=== PATIENT | male | born 1940 | race Caucasian/White ===

== ENCOUNTER 2016-10-06 13:28 | Inpatient (IN) | payer MEDICARE ==
[~2016-10-06] VITALS: Ht 182.9 cm; Wt 104.5 kg
--- NOTE | 2016-10-06 13:45 | NUR ---
Arrived from [facility] Pt arrived via EMS from [facility]. Pt denies chest pain at this time. Pt accompanied by family. Pt on 1000 units Heparin upon arrival. Per report VSS. Care continues.
[2016-10-06] MEDS ORDERED: 0.9% Sodium Chloride 1,000 ML IV SCH (15:25)
[2016-10-06] MEDS ORDERED: Senna-Docusate 8.6-50 mg Tablet PO PRN (15:25)
[2016-10-06] MEDS ORDERED: Heparin 25K Unit/500mL 0.45 NS 25,000 UNIT in IV Premix 1 EACH IV SCH (15:25)
[2016-10-06] MEDS ORDERED: Alum-Mag Hydrox-Simeth 30 mL Suspension PO PRN (15:25)
[2016-10-06] MEDS ORDERED: Heparin 5,000 Unit/mL Inj IVPUSH PRN (15:25)
[2016-10-06] MEDS ORDERED: Polyethylene Glycol (PEG) 17 Gm Powder PO PRN (15:25)
[2016-10-06] MEDS ORDERED: Ondansetron 2 mg/mL 2 mL Inj IVPUSH PRN (15:25)
[2016-10-06 15:42] VITALS: BP 171/98; PULSE 69; RESP 23; O2SAT 98
[2016-10-06 15:43] VITALS: PULSE 79
[2016-10-06 15:45] LABS: APPEARANCE,URINE CLEAR (CLEAR,HAZY); COLOR,URINE YELLOW (YELLOW); OCCULT BLOOD,URINE TRACE (NEGATIVE); PH,URINE 6.5 (5.0-8.0); UROBILINOGEN,URINE NORMAL (NORMAL)
[2016-10-06] MEDS: Sodium Chloride LOK Flush 10 mL Syringe IVFLUSH SCH ×2 (16:35→22:22)
[2016-10-06] MEDS ORDERED: FLUT16SP NASAL (16:53)
[2016-10-06] MEDS ORDERED: LISI-567 PO (16:53)
[2016-10-06] MEDS ORDERED: Nitroglycerin 2% 1 Gm Ointment TOPICAL SCH (17:05)
[2016-10-06 17:18] LABS: Magnesium 2.3 mg/dL (1.6-2.6); TROPONIN T 1.68 ug/L (0.0-0.011)
--- NOTE | 2016-10-06 17:21 | NUR ---
CHEST PAIN During admission assessment, pt reports chest pain-MD present and orders Nitrostat to be administered. Nitro given at 1705 with slight relief and second dose administered at 1710 with reported relief. VSS, BP within normal range. EKG in progress. Pt's primary RNElisha is aware.
[2016-10-06] MEDS ORDERED: Nitroglycerin 2% 1 Gm Ointment TOPICAL ONE (18:00)
--- NOTE | 2016-10-06 18:57 | PCM.HPMED ---
Subjective Date of Service October 06, 2016 Primary Provider: Admitting Physician: Gilmer Brito MD Primary Care Physician: Duran Rosas MD Attending Physician: Gilmer Brito MD Admit Status: Direct Admit Chief Complaint: "chest pressure" History of Present Illness: Mr. Dejon Osborn is a 76 year old man with history of hypertension and is a former smoker who presented to the hospital as a transfer from [facility] for chest pain that started Tuesday. He and his are moving so he has been doing a lot of work around the house including yard work on Tuesday. He states that Tuesday morning he started to have a headache at the top of his head and an earache. Tuesday, he was sitting at the [facility] 's office when he noticed that he had a sore throat. He then started having a dull chest pressure at his left pectoralis area radiating into his left neck and left shoulder. He states that it was a 3/10 and constant. It gets worse with movement and doing things. He went home from the [facility]'s office and ate pizza for dinner. After eating dinner, he was nauseous and felt like the pizza was stuck in his esophagus so he vomited once. It was non-bloody vomit. He also had 4 loose bowel movements yesterday, which is abnormal for him. The chest pressure continued and he was not able to sleep secondary to pain. He tried taking Aleve twice without relief of his pain. When the pain continued this morning, he decided to seek medical attention at the hospital. He thought he was just having heartburn. He had associated dyspnea. He continues to have chest pain now. It fluctuates from a 3/10 up to a 5/10. He continues to have nausea, a sore throat, and mild cough. He does not have fever, chills, rash, changes in visions, nasal congestion, trouble talking or swallowing, abdominal pain, dysuria, leg edema, hematemesis, hematochezia, melena, or focal weakness. At [facility], patient was started on a heparin drip he was given aspirin 324 mg once, atorvastatin 40 mg once, clopidogrel 300 mg once, and metoprolol tartrate 5 mg once. EKG did not show concerning ST segment changes. Review of Systems: A comprehensive review of systems was conducted with the patient and found to be negative except as above in the History of Present Illness. 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 External ears without defect. Pupils equal, round, and reactive to light and accommodation. Anicteric sclerae, moist conjunctivae, and no lid lag. Oropharynx free of erythema and cobble stoning with moist mucosa. Neck: Supple with full range of motion. No jugular venous distension. No bruits. No lymphadenopathy or thyromegaly. Cardiovascular: Regular rate and rhythm with no murmurs, rubs, or gallops appreciated Pulmonary: Clear to auscultation bilaterally with no crackles, wheezes, or rhonchi. Normal respiratory effort with no use of accessory muscles. Abdomen: Bowel tones present. Soft, nontender, nondistended. No hepatosplenomegaly or masses appreciated. Extremities: Trace pitting edema bilateral lower legs up to the ankles. No clubbing, cyanosis, or lymphadenopathy appreciated. Skin: Diffuse actinic keratoses. Lipomas underneath right arm along the triceps and on left upper quadrant of abdomen. Normal temperature, turgor, and texture; no rash, ulcers, or subcutaneous nodules appreciated. Neurological: Cranial nerves grossly intact. Normal muscle strength, tone, and bulk. Reflexes, coordination, and sensory function within normal limits. No known gait impairment. Psychiatric: Normal mood and affect. Alert and oriented to person, place, and time. Lab and Diagnostics Labs Blood work from [facility] on 10/06/2016 at 10:45 AM: WBC 13.4, RBC 5.3, hemoglobin 16.1, hematocrit 46.2, MCV 87.1, platelet count 183, neutrophils 11.4, lymphocytes 1.1, monocytes 0.8, eosinophils 0.0 Sodium 137, potassium 4, chloride 102, carbon dioxide 26, BUN 17, creatinine 1, estimated GFR 72, glucose 156, calcium 9.7, magnesium 2.2, total bilirubin 1.4, AST 118, ALT 33, alkaline phosphatase 67, troponin I 12.86, BNP 169, albumin 4.4 , lipase 33 X-Rays, CTs and MRIs CXR does not show any acute cardiopulmonary diseases. 12-lead ECG Sinus rhythm Non specific ST changes in V2, V3 Assessment & Plan Mr. Dejon Osborn is a 76 year old man with history of hypertension and former smoker who presented to the hospital as a transfer from [facility] for chest pain that started Tuesday Probable non-ST elevation myocardial infarction, acute, present on admission. Active. - EKGs do not show significant ST elevation, troponin elevated at [facility] and here - Pt does not have any known coronary artery disease - CK-MB elevated - Patient was ready given a loading dose of aspirin, Plavix and atorvastatin at [facility] - He was also given 1 dose of 5 mg metoprolol and started on a heparin drip - Nitroglycerin and morphine as needed for chest pain - EKGs as needed for chest pain - 1 inch of nitroglycerin paste for tonight - Continue to trend troponin level - Continue aspirin 81 mg daily, atorvastatin 40 mg once daily, metoprolol tartrate 12.5 mg twice a day, and lisinopril 20 mg once daily - Continue heparin drip - Echocardiogram ordered - Cardiology consulted and following. Their recommendations appreciated. Patient will likely proceed with a left heart catheterization with coronary angiogram tomorrow. - Nothing by mouth after midnight Abnormal liver function tests, acute, present on admission. Active. - Elevated total bilirubin and AST - Pt does not have abdominal pain and does not have abdominal tenderness on exam - Patient reports history of gallstones and reports only drinking 1 martini every other week and occasionally 1 additional beer - No evidence of acute heart failure on exam - Continue to monitor with morning labs and consider further imaging and/or labs if persists - Echocardiogram as above Essential hypertension, chronic. - Continue lisinopril 20 mg once daily - Metoprolol 12.5 mg twice a day as above - Continue to monitor Obstructive sleep apnea, chronic. - Patient is unable to bring his CPAP to the hospital -.CPAP for overnight Gastroesophageal reflux disease, chronic. - Pepcid twice a day Zofran as needed for nausea and vomiting Acetaminophen as needed for pain or fever Maalox as needed for heartburn MiraLAX and senna as needed for constipation High-risk medications: Heparin drip Patient Status: Patient is admitted under inpatient status with expected length of stay greater than 2 midnights due to severity of presenting symptoms, risk of adverse event, and complexity of treatment plan. CODE STATUS: Full code will need to obtain advanced directive from [facility] VTE Prophylaxis: Other (heparin drip) Resuscitation Status: CPR: Attempt Resuscitation Time spent 45 min Attending Statement Patient seen and examined with house staff. Agree with all attached documentation. Martha Dobbs DO October 06, 2016 16:39 Gilmer Brito MD October 07, 2016 07:58
--- NOTE | 2016-10-06 19:28 | NUR ---
Heparin Started pt on Heparin at 1634 per Cardiac Heparin Protocol 1000 units/hr. Two nurse check with Delmi Mendez. NS at 80 mL/hr per orders. Care continues.
[2016-10-06 19:32] VITALS: BP 140/77; PULSE 70; RESP 18; O2SAT 97
[2016-10-06 23:54] VITALS: BP 125/66; PULSE 72; RESP 18; O2SAT 96
[2016-10-07] VITALS (17 sets, daily range): BP systolic 103–146; BP diastolic 59–83; PULSE 67–91; RESP 10–21; O2SAT 92–98
--- NOTE | 2016-10-07 03:12 | NUR ---
Headache Pt c/o headache 09/22. paged, new orders received for Tylenol. Administered. Tylenol effective, pt sleeping.
[2016-10-07 03:24] LABS: BASOPHILS % (AUTO) 0.3 % (0-3); EOSINOPHILS % (AUTO) 0.8 % (0-5); MONOCYTES % (AUTO) 12.7 % (4-12); Mean Corpuscular Hemoglobin 30.6 pg (27.0-35.0); Mean Corpuscular Volume 84.8 fL (81-100); NEUTROPHILS % (AUTO) 69.8 % (40-74); Platelet Count 176 bil/L (150-400)
[2016-10-07 04:50] LABS: TROPONIN T 2.23 ug/L (0.0-0.011)
[2016-10-07] MEDS: Sodium Chloride LOK Flush 10 mL Syringe IVFLUSH SCH ×2 (09:08→15:53)
[2016-10-07] MEDS: Fluticasone 0.05% 15 Spray/2 Gm 16 Gm Nasal Spray NASAL SCH (09:08)
--- NOTE | 2016-10-07 10:24 | PCM.CHPCAR ---
Consult Subjective Date of service October 07, 2016 Date of admit October 06, 2016 at 15:24 Provider Requesting Consult Requesting Provider: Martha Dobbs DO Primary Care Physician Primary Care Physician: Duran Rosas MD Chief Complaint Chest pressure History of Present Illness 76yoM hx HTN, JAEL, GERD, and past history of smoking who presented with 3 days of dull constant 3/10 chest pain and pressure in his left chest radiating to his left neck and left shoulder. It was described as worsened with activity, although it was present constantly. Associated symptoms included nausea, vomiting, sore throat, and mild cough. He denies shortness of breath, orthopnea , paroxysmal nocturnal dyspnea, dizziness, fainting, palpitations, or edema. He was admitted to [facility], started on aspirin, Plavix, atorvastatin, and metoprolol tartrate. EKG did not show concerning ST changes but troponins were elevated, and he was transferred to [facility]. He was started on a heparin drip on admission. Troponin and CK-MB were noted to be significantly elevated. Today, he reports his chest pain and pressure are resolved, along with his nausea and vomiting. He reports he feels well at this time. He states he has no other complaints. PROBLEM LIST: # NSTEMI # Hypertension # Obstructive sleep apnea # Former Smoker: quit in the 1970s Review of Systems Review of Systems Comprehensive review of systems conducted and was negative except for the pertinent positives listed above. PMH Past Medical History Hypertension for 3 years Lipomas Cholelithiasis Obstructive sleep apnea Gastroesophageal reflux disease Past Surgical History Lumbar spine surgery (L3-L4 laminectomy) Lipoma removals Scheduled Fluticasone Propionate (Fluticasone Propionate Nasal) 16 Gm [place].susp 1 SPRAY NASAL DAILY (Reported) Lisinopril (Lisinopril) 20 Mg Tablet 20 MG PO DAILY (Reported) Current Inpatient Medications Current Medications Sodium Chloride 10 ml 10 ml DONELL IVFLUSH Last administered on 10/07/16 09:08; Admin Dose 10 ML; Start 10/06/16 at 16:30 Sodium Chloride 1,000 ml @ 80 mls/hr [id number] IV Last administered on 10/06/16 16:30; Admin Dose 80 MLS/HR; Start 10/06/16 at 15:25; Stop 10/06/16 at 17:16; Status DC Aspirin 81 mg DAILY PO Last administered on 10/07/16 09:08; Admin Dose 81 MG; Start 10/07/16 at 08:30 Atorvastatin Calcium 40 mg HS PO Last administered on 10/06/16 19:36; Admin Dose 40 MG; Start 10/06/16 at 21:00 Al Hydrox/Mg Hydrox/Simethicone 30 ml Q6 PRN PO; Start 10/06/16 at 15:25 Ondansetron HCl 4-8 mg prn nausea Q4 PRN IVPUSH; Start 10/06/16 at 15:25 Senna 1 tablet BID PRN PO; Start 10/06/16 at 15:25 Polyethylene Glycol 17 gm DAILY PRN PO; Start 10/06/16 at 15:25 Acetaminophen 325 mg Q6 PRN PO; Start 10/06/16 at 15:25; Stop 10/06/16 at 23:14 ; Status DC Nitroglycerin 0.4 mg Q5MIN PRN SL Last administered on 10/06/16 17:25; Admin Dose 0.4 MG; Start 10/06/16 at 15:25 Morphine Sulfate 1-5 mg prn pain not relie... Q5M PRN IVPUSH; Start 10/06/16 at 15:25 Heparin Sodium (Porcine) Per Protocol for a... PRN PRN IVPUSH Last administered on 10/06/16 22:25; Admin Dose 5,000 UNIT; Start 10/06/16 at 15:25 Lisinopril 20 mg HS PO; Start 10/06/16 at 21:00; Stop 10/06/16 at 21:00; Status DC Metoprolol Tartrate 12.5 mg BID PO Last administered on 10/07/16 09:08; Admin Dose 12.5 MG; Start 10/06/16 at 20:30 Lisinopril 20 mg HS PO; Start 10/07/16 at 21:00 Nitroglycerin 1 inch NOW TOPICAL; Start 10/06/16 at 17:05; Stop 10/06/16 at 17: 57; Status DC Fluticasone Propionate 1 spray DAILY NASAL Last administered on 10/07/16 09:08 ; Admin Dose 1 SPRAY; Start 10/07/16 at 08:30 Famotidine 20 mg Q12 PO Last administered on 10/07/16 09:08; Admin Dose 20 MG; Start 10/06/16 at 20:30 Acetaminophen 650 mg Q6H PRN PO Last administered on 10/06/16 23:28; Admin Dose 650 MG; Start 10/06/16 at 23:14 Allergies: Coded Allergies: No Known Allergies (Unverified , 10/06/16) Family History Family History Mother from cervical caner at 61 years old Father from myocardial infarction at 89 years old He has four children in good health Social History 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 Hx Alcohol Use: Yes (one martini once every other week and occasional 1 additional beer)Alcoholic Drinks Per Day: see noteHx Substance Use: No Smoking Status: Former Smoker (18 pack year history) Living Arrangement: with Family Exam Vital Signs Vital Sign - Last Date Time Temp Pulse Resp B/P Pulse Ox O2 Delivery O2 Flow Rate FiO2 10/07/16 07:52 36.5 70 18 117/70 98 Room Air Intake and Output 10/06/16 10/06/16 10/07/16 Cumulative From/Thru 15:00 23:00 07:00 10/06/16 15:42 - 10/07/16 06:48 Intake Total 464 ml 464 ml Output Total 1175 ml 1175 ml Balance -711 ml -711 ml Intake Oral 200 ml 200 ml IV Total 264 ml 264 ml Output Urine Total 1175 ml 1175 ml Objective General appearance: No apparent distress, well-nourished, pleasant, cooperative HEET: Normocephalic, atraumatic, no scleral icterus, mucous membranes moist Neck: Supple, no JVD, no carotid bruit Cardiovascular: RRR, normal S1 and normal S2, no murmurs/ rubs/gallops, PMI nondisplaced, no peripheral edema Respiratory: Good aeration, CTAB Abdomen: Soft, nontender, nondistended, + bowel sounds Neuro: Alert, no facial droop, tongue midline, able to walk without any difficulty Psych: Appropriate affect Skin: No rashes on face, neck, and lower extremities Lab and Diagnostics Labs Troponin: (10/06/16 - 15:55): 1.68 (10/06/16 - 22:53): 2.0 (10/07/16 - 03:10): 2.23 (10/07/16 - 08:25): 2.02 Result Diagram: 10/07/16 0930 10/07/16 0310 12-lead ECG EKG (10/06/16): 1st degree AV block, ST changes in V2-V3. Biphasic T waves in V2- 3. EKG (10/07/16): 1st degree AV block. ST changes remain in V3, but normalized in V2. PVCs present. Additional Diagnostics: Echocardiogram (10/07/16): 1) Moderate concentric left ventricular hypertrophy with normal size and mildly reduced systolic function (EF 45-50%). 2) The mid to distal anterior wall and the mid to apical anterolateral wall is hypokinetic. 3) Normal right ventricular size and function. 4) No significant valvular disease. 5) No prior Echo available for comparison. Findings consistent with ischemic cardiomyopathy. Assessment & Plan Assessment 76yoM hx HTN, JAEL, GERD, and past history of smoking who presented with 3 days of dull constant 3/10 chest pain and pressure in his left chest radiating to his left neck and left shoulder. Admitted for NSTEMI. # NSTEMI: Pt presented with typical chest pain, with several cardiac risk factors including HTN, JAEL, and history of smoking. His ECG is concerning for Wellen's sign that could mean ostial/proximal LAD obstructive disease. Troponin positive consistent with NSTEMI. Echo shows anterior and anterolateral wall abnormality, consistent with probable LAD/diag (or LAD/LCx) disease. His DUDLEY Score is 3 (age >65, elevated cardiac markers, and >2 episodes of angina in 24 hours), conferring a 13% risk of all cause mortality in 14 days, which indicates that he is a candidate for cardiac catheterization. At this time, we will schedule him for a cath today. - Continue Aspirin 81 mg daily - Pt was given loading dose of clopidogrel 300 mg yesterday. Will start clopidogrel 75 mg daily - Continue lisinopril 20 mg daily - Continue metoprolol tartrate 12.5 mg BID - Continue heparin gtt - Morphine and nitroglycerin PRN - Will proceed with cardiac catheterization with possible PCI today. Informed consent obtained after discussing risks vs benefits. # Hypertension: Well controlled. BP 117/70. Pt likely has prior history of significant HTN given concentric LV hypertrophy on echocardiogram. - Continue lisinopril 20 mg daily # Obstructive sleep apnea - Continue CPAP VTE Prophylaxis: Other (heparin drip) Resuscitation Status: CPR: Attempt Resuscitation Attending Statement I saw, examined, and evaluated the patient with Dr. Pratik Schreiber on 2016 and agree with the note as above along with my edits. Pratik Schreiber October 07, 2016 10:24 Sallie Suarez MD October 07, 2016 11:33
--- NOTE | 2016-10-07 11:36 | DRSVH ---
[facility] [address] [address] Echocardiogram Report Name: NHI ADORNO TStudy Date : 10/07/2016 Height: 72 in Hospital Exam Location: [facility] Weight: 231 lb Gender: Male BSA: 2.3 m2 : 1940 Age: 76 yrs BP: 124/77 mmHg Reason For Study: Chest Pressure Ordering Physician: Performed By: Marilee Mcdaniels [facility] Interpretation Summary 1) Moderate concentric left ventricular hypertrophy with normal size and mildly reduced systolic function (EF 45-50%). 2) The mid to distal anterior wall and the mid to apical anterolateral wall is hypokinetic. 3) Normal right ventricular size and function. 4) No significant valvular disease. 5) No prior Echo available for comparison. Findings consistent with ischemic cardiomyopathy. Procedure: A two-dimensional transthoracic echocardiogram with color flow and Doppler was performed. The study quality was technically adequate. There is no prior echocardiogram noted for this patient. A contrast injection of Definity was performed to improve assessment of LV function. The patient was in normal sinus rhythm during the exam. The patient had occasional PVCs during the exam. Left Ventricle: The left ventricle is normal in size. Left ventricular wall thickness is moderately increased. The ejection fraction is estimated to be 45-50%. Left ventricular systolic function is mildly reduced. The mid to distal anterior wall and the mid to apical anterolateral wall is hypokinetic. The E/A ratio is reversed with an elevated E/E', suggesting impaired early relaxation of the left ventricle with possible increased filling pressures. Right Ventricle: The right ventricle is mildly dilated. The right ventricular systolic function is normal. Atria: Both atria are normal in size. There is no Doppler evidence for an interatrial shunt. Mitral Valve: The mitral valve leaflets are slightly calcified. There is trace mitral regurgitation. Aortic Valve: The aortic valve opens well. There is no aortic valve stenosis. No aortic regurgitation is present. Tricuspid Valve: The tricuspid valve is normal in structure and function. There is a trace or physiologic amount of tricuspid regurgitation. Right ventricular systolic pressure is estimated to be 20 mmHg plus the clinically estimated CVP which cannot be estimated on this exam. Pulmonic Valve: The pulmonic valve is not well seen, but is grossly normal. There is a trace or physiologic amount of pulmonic regurgitation. Great Vessels: The aortic root is normal size. The ascending aorta is at the upper limits of normal in size. The aortic arch is at the upper limits of normal in size. The IVC has a measurement of 23 mm. Pericardium/ Pleura There is no pericardial effusion. MMode/2D Measurements & Calculations LVIDd: 4.2 cm LA dimension: 3.6 cm RA long axis LVOT diam: 2.4 cm LVIDs: 3.0 cm AoV Opening FS: 30.1 % LA A2 area: 17.8 cm RA area EPSS: 1.1 cm LA A4 area: 19.2 cm Ao root diam IVSd: 1.5 cm LA length (vol) : 16.7 cm LVPWd: 1.4 cm RA vol asc Aorta Diam LA vol: 54.2 ml : 49.9 ml LA vol index RA Ao Arch Diam (Prox : 22.0 mm2 Trans): 3.4 cm IVC diam: 2.3 cm LV gleason. diameter/BSA LV sys. diameter/BSA RVD1 (basal) TAPSE: 2.7 cm (cm/m^2): 1.9 (cm/m^2): 1.3 Doppler Measurements & Calculations Ao V2 max MV E max augusto MV E/A: 0.51 TR max augusto : 96.1 cm/sec : 53.5 cm/sec Med Peak E' Augusto : 225.8 cm/sec Ao max PG MV A max augusto TR max PG : 3.7 mmHg : 105.3 cm/sec E/E' med: 13.0 : 20.4 mmHg Ao mean PG MV P1/2t: 90.0 msec Lat Peak E' Augusto PA V2 max : 63.5 cm/sec LVOT Max Augusto E/E' lat: 13.6 PA mean PG : 82.1 cm/sec E/e' average PA Accel Time WIL(I,D): 4.2 cm : 0.16 sec sev ratio MV dec time MV P1/2t max augusto Ao V2 mean LV V1 max PG : 0.31 sec : 64.8 cm/sec MVA(P1/2t): 2.4 cm2 Ao V2 VTI: 18.3 cm LV V1 VTI WIL(V,D): 3.9 cm2 : 17.1 cm PA V2 mean WIL indexed to BSA : 47.6 cm/sec (cm^2/m^2): 1.9 Reading Physician:11:35 AM
--- NOTE | 2016-10-07 13:18 | PCM.PNMED ---
Subjective Date of Service October 07, 2016 Subjective Mr. Dejon Osborn is a 76 year old man with history of hypertension and is a former smoker who presented to the hospital as a transfer from [facility] for chest pain that started Tuesday afternoon. This morning, he does not have chest pain, dyspnea, nausea, or swelling in his legs. He has a 3/10 frontal headache that was relieved by Tylenol earlier this morning. He does not have abdominal pain. He last had a glass of wine Tuesday night with dinner. Exam Vital Signs Vital Sign - Last Date Time Temp Pulse Resp B/P Pulse Ox O2 Delivery O2 Flow Rate FiO2 10/07/16 05:01 75 10/07/16 04:32 36.5 18 124/77 95 Room Air Intake and Output 10/06/16 10/06/16 10/07/16 Cumulative From/Thru 15:00 23:00 07:00 10/06/16 15:42 - 10/07/16 06:48 Intake Total 464 ml 464 ml Output Total 1175 ml 1175 ml Balance -711 ml -711 ml Intake Oral 200 ml 200 ml IV Total 264 ml 264 ml Output Urine Total 1175 ml 1175 ml Exam General: No acute distress, well-developed, well-nourished, appropriately interactive HEENT: Normocephalic, atraumatic. External ears without defect. Pupils equal, round, and reactive to light and accommodation. Anicteric sclerae, moist conjunctivae, and no lid lag. Oropharynx free of erythema and cobble stoning with moist mucosa. Neck: Supple with full range of motion. No jugular venous distension. Cardiovascular: Regular rate and rhythm with no murmurs, rubs, or gallops appreciated Pulmonary: Clear to auscultation bilaterally with no crackles, wheezes, or rhonchi. Normal respiratory effort with no use of accessory muscles. Abdomen: Bowel tones present. Soft, nontender, nondistended. No hepatosplenomegaly or masses appreciated. Extremities: Trace pitting edema bilateral lower legs up to the ankles. No clubbing, cyanosis, or lymphadenopathy appreciated. Skin: Diffuse actinic keratoses. Lipomas underneath right arm along the triceps and on left upper quadrant of abdomen. Neurological: Cranial nerves grossly intact. Normal muscle strength, tone, and bulk. No known gait impairment. Psychiatric: Normal mood and affect. Alert and oriented to person, place, and time. IVs and Medications Medications Reviewed: Medications were reviewed in detail Lab and Diagnostics Result Diagram: 10/07/1630910/07/16309 X-Rays, CTs and MRIs CXR does not show any acute cardiopulmonary diseases. 12-lead ECG Sinus rhythm Non specific ST changes in V2, V3 Cardiac Echo Impressions Echocardiogram Report Interpretation Summary 1) Moderate concentric left ventricular hypertrophy with normal size and mildly reduced systolic function (EF 45-50%). 2) The mid to distal anterior wall and the mid to apical anterolateral wall is hypokinetic. 3) Normal right ventricular size and function. 4) No significant valvular disease. 5) No prior Echo available for comparison. Findings consistent with ischemic cardiomyopathy. Reading Physician:11: 35 AM Assessment & Plan Mr. Dejon Osborn is a 76 year old man with history of hypertension and former smoker who presented to the hospital as a transfer from [facility] for chest pain that started Tuesday Probable non-ST elevation myocardial infarction, acute, present on admission. Active. - EKGs did not show significant ST elevation, troponin elevated at [facility] and here - Pt does not have any known coronary artery disease - CK-MB also elevated - Echocardiogram shows EF 45-50% and mid to distal anterior wall and the mid to apical anterolateral wall is hypokinetic. - Patient was already given a loading dose of aspirin, Plavix and atorvastatin at [facility] - He was also given 1 dose of 5 mg metoprolol and started on a heparin drip - Nitroglycerin and morphine as needed for chest pain - EKGs as needed for chest pain - 1 inch of nitroglycerin paste yesterday - Continue aspirin 81 mg daily, atorvastatin 40 mg once daily, metoprolol tartrate 12.5 mg twice a day, and lisinopril 20 mg once daily - Continue heparin drip until left heart catheterization with coronary angiogram later today - Cardiology consulted and following. Their recommendations appreciated. Patient will have a left heart catheterization with coronary angiogram today - Nothing by mouth until procedure Abnormal liver function tests, acute, present on admission. Active. - Elevated total bilirubin and AST - Pt does not have abdominal pain and does not have abdominal tenderness on exam - Patient reports history of gallstones and reports only drinking 1 martini every other week and occasionally 1 additional beer. His last drink was the 2 days ago. - No evidence of acute heart failure on exam - Continue to monitor with morning labs and consider further imaging and/or labs if persists - Echocardiogram as above Essential hypertension, chronic. - Continue lisinopril 20 mg once daily - Metoprolol 12.5 mg twice a day as above - Continue to monitor Obstructive sleep apnea, chronic. - Patient is unable to bring his CPAP to the hospital -.CPAP for overnight Gastroesophageal reflux disease, chronic. - Pepcid twice a day Zofran as needed for nausea and vomiting Acetaminophen as needed for pain or fever Maalox as needed for heartburn MiraLAX and senna as needed for constipation High-risk medications: Heparin drip CODE STATUS: Full code will need to obtain advanced directive from [facility] VTE Prophylaxis: Other (heparin drip) Resuscitation Status: CPR: Attempt Resuscitation Attending Statement Patient seen and examined with house staff. Agree with all attached documentation. Martha Dobbs DO October 07, 2016 07:37 Gilmer Brito MD October 07, 2016 16:26
[2016-10-07] MEDS ORDERED: Heparin 1,000 Units/500 mL NS Premix IV ONE (14:29)
[2016-10-07] MEDS ORDERED: Heparin 10,000 Unit/1,000 mL NS Premix IV ONE (14:30)
[2016-10-07] MEDS ORDERED: Heparin 1,000 Unit/mL 10 mL Inj ONE ×2 (14:30→16:01)
[2016-10-07] MEDS ORDERED: Verapamil 2.5 mg/mL 2 mL Inj ONE (14:30)
[2016-10-07] MEDS ORDERED: Nitroglycerin 50,000 mcg/250 mL D5W Premix IV ONE (14:30)
--- NOTE | 2016-10-07 14:30 | NUR ---
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 Pt denies any CP, SOB or dizziness. A&O, RASS score 0. PIV started by IV therapy due to needing access to right radial for cathead operator. Report passed to Elisha Ramsey RN
[2016-10-07] MEDS ORDERED: fentaNYL-PF 50 mCg/mL 2 mL Inj ONE ×2 (15:09→15:34)
[2016-10-07] MEDS ORDERED: Heparin 5,000 Units/500 mL NS Premix IV ONE ×2 (15:59→16:24)
[2016-10-07] MEDS ORDERED: Atropine 1 mg/10 mL (Code) Syringe ONE (16:18)
[2016-10-07] MEDS ORDERED: Phenylephrine/NS-PF 100 mCg/mL 5 mL Syringe IVPUSH ONE (16:18)
[2016-10-07] MEDS ORDERED: 0.9% Sodium Chloride 100 ML ONE (16:33)
[2016-10-07] MEDS ORDERED: Adenosine Inj 40 ML IV ONE (16:33)
--- NOTE | 2016-10-07 16:46 | PCM.CVCATH ---
Cardiac Cath Report Date of Service October 07, 2016 Primary Indication NSTEMI, anterior and anterolateral wall motion abnormality on Echo Procedure coronary angiography, left heart cath Vascular Access Right radial artery using 6 Fr slender sheath, closure with TR band. Diagnostic Catheters Left main: Armbrust 4.5, 6 Fr RCA: Armbrust 4.5, 6 Fr Procedure Details Coronary angiography details: The patient was brought to the cardiac catheterization lab in the fasting state. Patient was laid supine on the cardiac catheterization table and the right forearm was prepped and draped in the usual sterile fashion. One percent Xylocaine was infiltrated over the right radial artery. Vascular access was then achieved under ultrasound guidance. Guide wire was used to advance the catheter through the sheath and up into aortic sinuses. After coronary angiography was completed, guide wire was advanced through the catheter ahead of the tip of the catheter and the guide wire along with the catheter were pulled together out of the sheath. Medications/Fluoro Time Medications/contrast administered and contrast totals: see PCI report Findings 1) Coronary angiography: Right dominance a. Left main is angiographically normal b. LAD is normal caliber vessel with 70-80% tubular stenosis from the ostium to the proximal LAD. The second diagonal artery is small caliber and appears to be occluded proximally. c. LCx is normal caliber vessel with mild luminal irregularities. d. RCA is a normal caliber vessel with 60-70% stenosis in the mid vessel. 2) Left Heart catheterization: a. LVEDP is normal at 15 mmHg. b. No significant transaortic gradient on catheter pull-back. Complications There were no periprocedural complications identified. Summary 1) Obstructive disease in the proximal LAD and occlusion of the small caliber second diagonal artery. 2) Borderline obstructive disease of the mid-RCA. Recommendations 1) Refer to PCI for proximal LAD revascularization. Sallie Suarez MD October 07, 2016 16:46
--- NOTE | 2016-10-07 18:25 | CS94 ---
[address] [address] DIAGNOSTIC CARDIAC CATHETERIZATION PATIENT: NHI ADORNO : 1940 MR#: [id number] ADMIT: 10/06/2016 JOB ID: [id number] PROCEDURE NOTE -- CARDIAC CATHETERIZATION LABORATORY: SERVICE DATE: September CONSTRUCTION CONSULTANT: Mauricio Taylor MD PROCEDURE: Percutaneous coronary intervention (PCI): a. Fractional flow reserve of proximal LAD (FFR; diagnostic) CLINICAL DETAILS: This 76-year-old man had no prior known heart disease until he was admitted yesterday after presenting with three days of chest discomfort. He was felt to have acute coronary syndrome with non-ST elevation myocardial infarction. Troponin kishan to 12. ECG showed lateral ST elevation (L1; and aVL); and anterior ST coving; and later Q-waves V1 through V3. Echocardiogram shows anterior wall motion defect with mild to moderate global LV dysfunction with ejection fraction 40% to 45%. He was stable without further chest discomfort. PROCEDURAL DETAILS: Urgent cardiac catheterization and diagnostic coronary angiogram by right radial approach was accomplished immediately preceding this procedure. The diagnostic images were reviewed and coronary intervention with FFR of the apparent culprit intermediate diffuse lesion of early mid LAD was requested. The patient was on the catheterization table with 6-Syrian right radial access in place. FFR of mid LAD: The patient had received aspirin, statin; and Plavix including a loading dose of 300 mg p.o. 24 hours Previously; and had received intravenous heparin treatment. Procedural anticoagulation was accomplished with additional bolus IV heparin to achieve therapeutic ACT. Aliquots of NTG per RRA were used. For the procedure, the left coronary artery was intubated with a 6-Syrian FL-3.5 guide catheter. Initially, a 6-Syrian Voda 4.0; and a Voda-3.5; and a Voda 3.0 could not intubate the left coronary artery. The index lesion is an intermediate (60% to 70% angiographic) diffuse lesion in the early mid LAD. The stump of an apparent occluded diagonal vessel is seen as well. The lesion was crossed without difficulty with a Thompson Pressure Wire and placed distally in the LAD after usual calibration and equalization. FFR was done with adenosine IV infusion. Lowest FFR was 0.81. IFR was 0.89. Completion angiograms show no change in the left coronary artery and LAD. Procedure without difficulty. Patient tolerated procedure well. No complication. A prior side-arm sheath angiogram had showed adequate access in the right femoral artery for a closure device. Arterial hemostasis was obtained without difficulty using a Perclose suture. The patient was transferred chest-pain free and in stable condition from the Catheterization Laboratory to the [facility] unit for ongoing care. I discussed the findings, impression, and management with the patient; as well as with his and daughter; and with Cardiology. FINDINGS: FFR of early mid LAD intermediate lesion -- FFR 0.81. Therapeutic intervention deferred. RECOMMENDATION: 1. OMT-- recommend guideline directed medical therapy for acute coronary syndrome including the ECASA; Plavix for one year; and high-intensity statin with Lipitor 80 mg p.o. q.h.s. if well tolerated; and beta-sabine; and ARUY inhibitor. 2. Close ongoing Cardiology followup for the residual intermediate LAD lesion; and for his intermediate mid right coronary artery lesion.
--- NOTE | 2016-10-07 19:24 | NUR ---
Report from [facility] Report taken from [facility] Worley at approximately 1825, pt to arrive at approximately 1930 back to [facility]. Report given to robby BARR.
--- NOTE | 2016-10-07 19:54 | NUR ---
[facility] POST HEART CATH/TRANSFER PT WAS RECEIVED FROM [facility] AT 1710. RIGHT WRIST SITE WITH TR BAND HAS REMAINED NON TENDER, NO BLEEDING OR HEMATOMA NOTED. PT HAS BEEN COMPLIANT KEEPING RIGHT WRIST STRAIGHT AND NOT BENDING IT. HE TOLERATED MEAL WELL AND HAS USED URINAL TO VOID. IV NS INFUSING PER ORDERS. TR BAND WAS GRADUALLY DEFLATED AFTER 2 HOURS ON AND REMOVED. NO BLEEDING OR HEMATOMA NOTED. COVERED WITH OPSITE. REPORT CALLED TO WILFREDO Pedro RN EARLIER. PT WAS TRANSPORTED BACK TO ROOM 2002 AT 1950. BEDSIDE HANDOFF DONE WITH EARLINE Tian RN.
--- NOTE | 2016-10-07 20:00 | NUR ---
Transfer from [facility] to [facility] Room 2002 Pt was picked up from [facility] and transferred in the pt's bed back to Room 2002. Pt's VSS and pt is able to get OOB. Pt's radial artery site is clean, dry, and intact with a bio-occlusive dressing that has minimal sanguineous drainage. Pt's pulses are strong in both arms and pt has sensation as well bilaterally with good capillary refill.
[2016-10-08] VITALS (9 sets, daily range): BP systolic 121–158; BP diastolic 70–93; PULSE 69–91; RESP 16–20; O2SAT 94–97
[2016-10-08] MEDS: Sodium Chloride LOK Flush 10 mL Syringe IVFLUSH SCH ×3 (00:30→17:27)
[2016-10-08 03:09] LABS: Mean Corpuscular Volume 85.9 fL (81-100)
--- NOTE | 2016-10-08 05:14 | NUR ---
Respiratory/Catheter Insertion Site Pt was on a continuous pulse ox during sleep since pt uses a CPAP at home and didn't bring it with him to the hospital. Pt has been educated on JAEL. Pt SpO2 remained >92% on RA throughout the night. Pt's radial artery catheter insertion site remains the same and pt still has the bio-occlusive dressing on the site with minimal sanguineous drainage. There is paperwork in the pt's paper chart with a blue sticky note on it that needs to be sent home with the pt. The paperwork is information on care of the catheter insertion site.
[2016-10-08] MEDS: Fluticasone 0.05% 15 Spray/2 Gm 16 Gm Nasal Spray NASAL SCH (08:30)
--- NOTE | 2016-10-08 08:59 | PCM.PNCARD ---
Subjective Date of service October 08, 2016 Chief Complaint Chest pressure History of Present Illness 76yoM hx HTN, JAEL, GERD, and past history of smoking who presented with 3 days of dull constant 3/10 chest pain and pressure in his left chest radiating to his left neck and left shoulder. It was described as worsened with activity, although it was present constantly. Associated symptoms included nausea, vomiting, sore throat, and mild cough. He denies shortness of breath, orthopnea , paroxysmal nocturnal dyspnea, dizziness, fainting, palpitations, or edema. He was admitted to [facility], started on aspirin, Plavix, atorvastatin, and metoprolol tartrate. EKG did not show concerning ST changes but troponins were elevated, and he was transferred to [facility]. He was started on a heparin drip on admission. Troponin and CK-MB were noted to be significantly elevated. Subjective: He reports that he tolerated the cath well yesterday. Today, he denies chest pain, shortness of breath, orthopnea, paroxysmal nocturnal dyspnea, edema, palpitations, syncope. PROBLEM LIST: # NSTEMI # Hypertension # Obstructive sleep apnea Exam Vital Signs Vital Sign - Last Date Time Temp Pulse Resp B/P Pulse Ox O2 Delivery O2 Flow Rate FiO2 10/08/16 05:16 81 10/08/16 03:42 37.2 16 144/83 95 Room Air Intake and Output 10/07/16 10/07/16 10/08/16 Cumulative From/Thru 15:00 23:00 07:00 10/06/16 15:42 - 10/08/16 06:44 Intake Total 700 ml 1250 ml 2414 ml Output Total 450 ml 1300 ml 2925 ml Balance 250 ml -50 ml -511 ml Intake Oral 400 ml 600 ml IV Total 700 ml 850 ml 1814 ml Output Urine Total 450 ml 1300 ml 2925 ml Additional Information: General appearance: No apparent distress, well-nourished, pleasant, cooperative HEET: Normocephalic, atraumatic, no scleral icterus, mucous membranes moist Neck: Supple, no JVD, no carotid bruit Cardiovascular: RRR, normal S1 and normal S2, no murmurs/ rubs/gallops, PMI nondisplaced, no peripheral edema Respiratory: Good aeration, CTAB Abdomen: Soft, nontender, nondistended, + bowel sounds Neuro: Alert, no facial droop, tongue midline, able to walk without any difficulty Psych: Appropriate affect Skin: No rashes on face, neck, and lower extremities Right radial arteriotomy site clean and healing well without induration or pain Lab and Diagnostics Result Diagram: 10/08/16 0240 10/08/16 0240 Additional Diagnostics: Echocardiogram (10/07/16) 1) Moderate concentric left ventricular hypertrophy with normal size and mildly reduced systolic function (EF 45-50%). 2) The mid to distal anterior wall and the mid to apical anterolateral wall is hypokinetic. 3) Normal right ventricular size and function. 4) No significant valvular disease. 5) No prior Echo available for comparison. Findings consistent with ischemic cardiomyopathy. Cardiac Cath (10/07/16) 1) Obstructive disease in the proximal LAD and occlusion of the small caliber second diagonal artery. 2) Borderline obstructive disease of the mid-RCA. 3) FFR of early mid LAD intermediate lesion -- FFR 0.81. Therapeutic intervention deferred. Assessment & Plan Assessment 76yoM hx HTN, JAEL, GERD, and past history of smoking who presented with 3 days of dull constant 3/10 chest pain and pressure in his left chest radiating to his left neck and left shoulder. Admitted for NSTEMI. # NSTEMI: Pt presented with typical chest pain, with several cardiac risk factors including HTN, JAEL, and history of smoking. His ECG on presentation was concerning for Wellen's sign that could mean ostial/proximal LAD obstructive disease. Troponin positive consistent with NSTEMI. Echo shows anterior and anterolateral wall abnormality, consistent with probable LAD/diag disease. Cardiac cath 10/07/2016 found occlusion of 2nd diagonal artery and intermediate lesion in the proximal-LAD, and further therapeutic intervention was deferred at this time. We will proceed with optimal medical treatment and close follow up. - Continue Aspirin 81 mg daily - Continue Plavix 75 mg daily - Continue lisinopril 20 mg daily. Will recheck BP at noon and may increase dose accordingly. - Switch from metoprolol tartrate 12.5 mg BID to carvedilol 6.25mg bid - Continue atorvastatin 80 mg qhs # Hypertension: Pt has prior history of significant HTN based on pt history and concentric LV hypertrophy on echocardiogram. He will likely require stricter BP control (goal < 120/80). - Continue lisinopril 20 mg daily. May increase to 40 daily depending on BP during today # LV hypertrophy: due to poorly controlled HTN. Management as above. # Obstructive sleep apnea - Continue CPAP Disposition: anticipate discharge tomorrow. Patient has f/u with cardiology on 11/17 at 2:30PM doctor time in [place]. Arrive 15 minutes prior to appt time. Problems: VTE Prophylaxis: Other (heparin drip) Resuscitation Status: CPR: Attempt Resuscitation Attending Statement I saw, examined, and evaluated the patient with Dr. Pratik Schreiber on 2016 and agree with the note as above along with my edits Pratik Schreiber October 08, 2016 08:59 Sallie Suarez MD October 08, 2016 11:36
--- NOTE | 2016-10-08 09:55 | NUR ---
Right wrist/flonase Pt right radial palpable, no signs of hematoma, no signs of bleeding. Reminded pt to use left hand to push off bed. Pt refused flonase, states he doesn't need it in the hospital. Provided pt with a sling for right arm, education for sling use. Care continues.
--- NOTE | 2016-10-08 10:32 | NUR ---
Social Work: Initial Assessment D: Per EMR review, pt is a 76 year old male admitted for NSTEMI. Pt is Medicare with [employer]; pt has LTC through [employer], pt has no VA Benefits. PCP Is Duran Rosas MD. NOK Is Irma Osborn, . Advanced directives requested for pt's chart. Readmit score is low, 0/8. RN UNIT MANAGER met with patient at bedside. Sw role explained and contact info provided. See initial assessment. Pt lives in [place] with his . Pt is I with ADLs at baseline and uses no DME. Pt lives in a single story home with 2 steps to enter. Pt has never had HH or skilled rehab. Pt continues to drive and has been ambulating I during admission. Pt expresses no concerns about discharge and RN UNIT MANAGER observed patient ambulating I during assessment. No sw needs identified by RN UNIT MANAGER or patient at this time. Pt's will transport. A: Pt who is I at baseline. P: Anticipate patient to discharge home via POV and no sw needs; RN UNIT MANAGER to continue to follow if needs arise. KIKE Blackwood Addendum: 10/08/16 at 1035 by JIM HOANG Amended: Links added.
--- NOTE | 2016-10-08 11:26 | PCM.PNMED ---
Subjective Date of Service October 08, 2016 Subjective Mr. Dejon Osborn is a 76 year old man with history of hypertension and is a former smoker who presented to the hospital as a transfer from [facility] for chest pain that started Tuesday afternoon. Today is hospital day 3. He reports having a mild headache right above his eyes this morning but it is better than it was before. He does not have pain in his right wrist where the access site is located. He does not have chest pain, dyspnea, or abdominal pain. He has gallstones and was taking medication for it, but he has never had right upper quadrant pain. Exam Vital Signs Vital Sign - Last Date Time Temp Pulse Resp B/P Pulse Ox O2 Delivery O2 Flow Rate FiO2 10/08/16 09:15 36.3 88 16 121/70 97 Room Air Intake and Output 10/07/16 10/07/16 10/08/16 Cumulative From/Thru 15:00 23:00 07:00 10/06/16 15:42 - 10/08/16 06:44 Intake Total 700 ml 1250 ml 2414 ml Output Total 450 ml 1300 ml 2925 ml Balance 250 ml -50 ml -511 ml Intake Oral 400 ml 600 ml IV Total 700 ml 850 ml 1814 ml Output Urine Total 450 ml 1300 ml 2925 ml Exam General: No acute distress, well-developed, well-nourished, appropriately interactive HEENT: Normocephalic, atraumatic. External ears without defect. Anicteric sclerae, moist conjunctivae, and no lid lag. Oropharynx free of erythema and cobble stoning with moist mucosa. Neck: Supple with full range of motion. No jugular venous distension. Cardiovascular: Regular rate and rhythm with no murmurs, rubs, or gallops appreciated Pulmonary: Clear to auscultation bilaterally with no crackles, wheezes, or rhonchi. Normal respiratory effort with no use of accessory muscles. Abdomen: Bowel tones present. Soft, nontender, nondistended. No hepatosplenomegaly or masses appreciated. Extremities: Right radial access site with minimal blood noted on wound dressing without a palpable hematoma. Radial pulse intact and capillary refill intact. No clubbing, cyanosis, or edema appreciated. Skin: Diffuse actinic keratoses. Lipomas underneath right arm along the triceps and on left upper quadrant of abdomen. Neurological: Cranial nerves grossly intact. Normal muscle strength grossly intact. Psychiatric: Normal mood and affect. Alert and oriented to person, place, and time. IVs and Medications Medications Reviewed: Medications were reviewed in detail Lab and Diagnostics Result Diagram: 10/08/1623910/08/16239 X-Rays, CTs and MRIs CXR does not show any acute cardiopulmonary diseases. 12-lead ECG Sinus rhythm Non specific ST changes in V2, V3 Cardiac Echo Impressions Echocardiogram Report Interpretation Summary 1) Moderate concentric left ventricular hypertrophy with normal size and mildly reduced systolic function (EF 45-50%). 2) The mid to distal anterior wall and the mid to apical anterolateral wall is hypokinetic. 3) Normal right ventricular size and function. 4) No significant valvular disease. 5) No prior Echo available for comparison. Findings consistent with ischemic cardiomyopathy. Reading Physician:11: 35 AM Assessment & Plan Mr. Dejon Osborn is a 76 year old man with history of hypertension and former smoker who presented to the hospital as a transfer from [facility] for chest pain that started Tuesday afternoon Non-ST elevation myocardial infarction, acute, present on admission. Resolved. - EKGs did not show significant ST elevation, troponin elevated at [facility] and here - CK-MB was also elevated - Echocardiogram shows EF 45-50% and mid to distal anterior wall and the mid to apical anterolateral wall is hypokinetic. 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 - Patient was already given a loading dose of aspirin, Plavix and atorvastatin at [facility] - He was also given 1 dose of 5 mg metoprolol and started on a heparin drip - Nitroglycerin and morphine as needed for chest pain - EKGs as needed for chest pain - 1 inch of nitroglycerin paste yesterday - Continue aspirin 81 mg daily, lisinopril 20 mg once daily - Increase atorvastatin to 80 mg once daily - Switch metoprolol tartrate 12.5 mg twice a day to carvedilol 6.25 mg BID - Cardiology consulted and following. Their recommendations appreciated. - Monitor blood pressure and adjust medications per cardiology Abnormal liver function tests, acute, present on admission. Improving. - Elevated total bilirubin and AST - Most likely secondary to chronic cholelithiasis, but pt is afebrile, no leukocytosis today, and does not have abdominal pain or tenderness on exam. He is not jaundice. He does not appear to have an active cholecystitis or cholangitis. - He has a history of gallstones - Patient reports history of gallstones and reports only drinking 1 martini every other week and occasionally 1 additional beer. His last drink was the 2 days ago. - No evidence of acute heart failure on exam - Continue to monitor with morning labs and consider further imaging and/or labs if persists - Echocardiogram as above Essential hypertension, chronic. - Continue lisinopril 20 mg once daily - Carvedilol twice a day as above - Continue to monitor Obstructive sleep apnea, chronic. - Patient is unable to bring his CPAP to the hospital -.CPAP for overnight Gastroesophageal reflux disease, chronic. - Pepcid twice a day Zofran as needed for nausea and vomiting Acetaminophen as needed for pain or fever Maalox as needed for heartburn MiraLAX and senna as needed for constipation VTE Prophylaxis: Other (heparin drip) Resuscitation Status: CPR: Attempt Resuscitation Attending Statement Patient seen and examined with house staff. Agree with all attached documentation. Martha Dobbs DO October 08, 2016 11:26 Gilmer Brito MD October 09, 2016 07:41
--- NOTE | 2016-10-08 18:46 | NUR ---
Blood Pressure Pt BP 153/89 HR 86 at 1618 after ambulation, retake at 1720 at rest BP 158/93 HR 82. No BP medications available. MD notified. MD ordered 40 mg Lisinopril. Administered 40 mg Lisinopril at 1836. Care continues.
--- NOTE | 2016-10-08 19:33 | NUR ---
Ambulation Pt ambulated every hour this shift around unit. MD encouraged. Steady gait, denies SOB or chest pressure. Care continues.
[2016-10-09] MEDS: Sodium Chloride LOK Flush 10 mL Syringe IVFLUSH SCH ×2 (00:42→09:14)
--- NOTE | 2016-10-09 01:29 | NUR ---
O2 sat's / BM on RA during night 96%. no BM since 10/05, indicated this is normal since he has only eaten a few times during this period.
[2016-10-09 03:03] VITALS: BP 136/75; PULSE 66; RESP 20; O2SAT 95
[2016-10-09 03:05] LABS: BASOPHILS % (AUTO) 0.3 % (0-3); EOSINOPHILS % (AUTO) 1.1 % (0-5); MONOCYTES % (AUTO) 12.2 % (4-12); Mean Corpuscular Hemoglobin 30.3 pg (27.0-35.0); Mean Corpuscular Volume 88.9 fL (81-100); NEUTROPHILS % (AUTO) 66.7 % (40-74); Platelet Count 210 bil/L (150-400)
[2016-10-09 05:28] VITALS: PULSE 82
[2016-10-09 09:07] VITALS: BP 126/73; PULSE 69; RESP 20; O2SAT 99
--- NOTE | 2016-10-09 09:13 | NUR ---
JANKI signed. Helen Diaz DECORATION CHECKER
[2016-10-09] MEDS: Fluticasone 0.05% 15 Spray/2 Gm 16 Gm Nasal Spray NASAL SCH (09:14)
[2016-10-09] MEDS ORDERED: NITR0.4T SL (09:20)
[2016-10-09] MEDS ORDERED: ATOR80TA77 PO (09:20)
[2016-10-09] MEDS ORDERED: ASPI81TA3 PO (09:20)
[2016-10-09] MEDS ORDERED: CLOP75TA28 PO (09:20)
[2016-10-09] MEDS ORDERED: CARV6.252 PO (09:20)
[2016-10-09] MEDS ORDERED: LISI40TA PO (09:20)
--- NOTE | 2016-10-09 09:21 | PCM.DIMED ---
Martha Dobbs DO 10/08/16 0659: Discharge Instructions Date of Service October 08, 2016 Dates of Hospitalization October 06, 2016 at 15:24 Discharge Diagnosis Discharge Diagnosis You had a minor heart attack, which is being managed by optimal medications. Diet Discharge Diet: Heart Healthy Activity Discharge Activity: Limited until seen by PCP Call your provider Call your provider for: Fever or Chills, Shortness of breath, Bleeding, Chest pain, Vomitting, Excessive diarrhea, Weakness (unilateral) Patient Instructions Patient Instructions Start clopidogrel (Plavix) 75 mg once daily. It is very important to take this medication every day and to not miss doses. Continue clopidogrel for 1 year. Start aspirin 81 mg once daily, carvedilol 12.5 mg twice per day, and atorvastatin 40 mg once daily at night. Increase lisinopril to 40 mg once daily. You are also given a prescription for nitroglycerin tablets. If you have chest pain, dissolve 1 tablet underneath your tongue every 5 minutes for a maximum of 3 tablets and call 911 or go to the nearest hospital. Follow up with your primary care provider in 7-10 days. Follow up with cardiology, Dr. Suarez, on 11/17/16 at 2:30PM in [place]. Please arrive 15 minutes prior to your appointment time. Follow-up Provider: Duran Rosas MD Follow-up with PCP in: 1 week Provider: Sallie Suarez MD Follow-up in: Other (11/17/16) Gilmer Brito MD 10/10/16 0730: Discharge Instructions Attending's Statement Patient seen and examined with house staff. Agree with all attached documentation. Martha Dobbs DO October 08, 2016 06:59 Gilmer Brito MD October 10, 2016 07:30
[2016-10-09 10:19] VITALS: PULSE 90
[2016-10-09] MEDS ORDERED: CARV12.52 PO (10:24)
[2016-10-09] MEDS ORDERED: ATOR40TA69 PO (10:34)
--- NOTE | 2016-10-09 10:35 | PCM.PNCARD ---
Subjective Date of service October 09, 2016 Chief Complaint Chest pressure History of Present Illness 76yoM hx HTN, JAEL, GERD, and past history of smoking who presented with 3 days of dull constant 3/10 chest pain and pressure in his left chest radiating to his left neck and left shoulder. It was described as worsened with activity, although it was present constantly. Associated symptoms included nausea, vomiting, sore throat, and mild cough. He denies shortness of breath, orthopnea , paroxysmal nocturnal dyspnea, dizziness, fainting, palpitations, or edema. He was admitted to [facility], started on aspirin, Plavix, atorvastatin, and metoprolol tartrate. EKG did not show concerning ST changes but troponins were elevated, and he was transferred to [facility]. He was started on a heparin drip on admission. Troponin and CK-MB were noted to be significantly elevated. Subjective: No acute events overnight. Today, he denies chest pain, shortness of breath, orthopnea, paroxysmal nocturnal dyspnea, edema, palpitations, syncope. He states he feels well and near baseline. PROBLEM LIST: # NSTEMI # Hypertension # Obstructive sleep apnea Exam Vital Signs Vital Sign - Last Date Time Temp Pulse Resp B/P Pulse Ox O2 Delivery O2 Flow Rate FiO2 10/09/16 10:19 90 10/09/16 09:07 36.6 20 126/73 99 Room Air Intake and Output 10/08/16 10/08/16 10/09/16 Cumulative From/Thru 15:00 23:00 07:00 10/06/16 15:42 - 10/09/16 05:56 Intake Total 1200 ml 700 ml 4314 ml Output Total 750 ml 1600 ml 5275 ml Balance 450 ml -900 ml -961 ml Intake Oral 1200 ml 700 ml 2500 ml IV Total 1814 ml Output Urine Total 750 ml 1600 ml 5275 ml # Voids 3 3 # Bowel Movements 0 0 Additional Information: General appearance: No apparent distress, well-nourished, pleasant, cooperative HEET: Normocephalic, atraumatic, no scleral icterus, mucous membranes moist Neck: Supple, no JVD, no carotid bruit Cardiovascular: RRR, normal S1 and normal S2, no murmurs/ rubs/gallops, PMI nondisplaced, no peripheral edema Respiratory: Good aeration, CTAB Abdomen: Soft, nontender, nondistended, + bowel sounds Neuro: Alert, no facial droop, tongue midline, able to walk without any difficulty Psych: Appropriate affect Skin: No rashes on face, neck, and lower extremities Right radial arteriotomy site clean and healing well without induration or pain Lab and Diagnostics Labs Telemetry: Sinus rhythm with occasional sinus arrhythmia. No episodes of Vtach. Result Diagram: 10/09/1622410/09/16224 Assessment & Plan Assessment 76yoM hx HTN, JAEL, GERD, and past history of smoking who presented with 3 days of dull constant 3/10 chest pain and pressure in his left chest radiating to his left neck and left shoulder. Admitted for NSTEMI. # NSTEMI: Pt presented with typical chest pain, with several cardiac risk factors including HTN, JAEL, and history of smoking. His ECG on presentation was concerning for Wellen's sign that could mean ostial/proximal LAD obstructive disease. Troponin positive consistent with NSTEMI. Echo shows anterior and anterolateral wall abnormality, consistent with probable LAD/diag disease. Cardiac cath 10/07/2016 found occlusion of 2nd diagonal artery and intermediate lesion in the proximal-LAD, and further therapeutic intervention was deferred at this time. We will proceed with optimal medical treatment and close follow up. Patient is now able to walk around the hallway multiple times without any symptoms. Plan: - Continue Aspirin 81 mg daily for lifetime - Continue Plavix 75 mg daily for one year - Continue lisinopril 40 mg daily - Increase carvedilol from 6.25mg bid to 12.5 mg BID for better BP control and get resting HR < 70 - Decrease atorvastatin from 80 mg qhs to 40mg qhs - Nitro SL PRN # Hypertension: Pt has prior history of significant HTN based on pt history and concentric LV hypertrophy on echocardiogram. He will likely require stricter BP control (goal < 120/80). - Continue lisinopril 40 mg daily - Carvedilol as above # LV hypertrophy: due to poorly controlled HTN. Management as above. # Obstructive sleep apnea - Continue CPAP Disposition:Appropriate for discharge today. Patient has f/u with cardiology on 11/17 at 2:30PM doctor time in [place]. Arrive 15 minutes prior to appt time. Problems: VTE Prophylaxis: Other (heparin drip) Resuscitation Status: CPR: Attempt Resuscitation Attending Statement I saw, examined, and evaluated the patient with Dr. Pratik Schreiber on 2016 and agree with the note as above along with my edits Pratik Schreiber October 09, 2016 10:35 Sallie Suarez MD October 09, 2016 11:17
--- NOTE | 2016-10-09 11:25 | NUR ---
Social Work: Readiness for Discharge/Discharge D: Per EMR review, pt is on day 3 of hospitalization for NSTEMI. CAUSTIC LOADER met with patient at bedside. Pt is I with ADLs at baseline and uses no DME. Pt was ambulating in room as SW spoke with pt. Pt to discharge home with to transport via POV. No discharge needs identified. A: Pt who is I at baseline. P: Patient to discharge home via POV and no SW needs. Helen Diaz CAUSTIC LOADER
--- NOTE | 2016-10-09 12:26 | NUR ---
Discharge pt ordered for discharge home. discharge instructions and medications reviewed with patient, prescriptions given. Pt ambulated with steady gait, all belongings to main entrance at about 1225.
--- NOTE | 2016-10-09 18:34 | PCM.DC.MED ---
Discharge Summary Date of Service October 09, 2016 Dates of Hospitalization Date of Hospital Admission October 06, 2016 at 15:24 Date of Discharge: October 09, 2016 Providers: Admitting Physician: Gilmer Brito MD Primary Care Physician: Duran Rosas MD Attending Physician: Gilmer Brito MD Diagnosis at Time of Discharge Diagnosis at Time of Discharge Non-ST elevation myocardial infarction Essential hypertension Abnormal liver function tests Obstructive sleep apnea Gastroesophageal reflux disease Consultations Cardiology Procedures XRay, CTs & MRIs CXR does not show any acute cardiopulmonary diseases. ECG 12 Lead Sinus rhythm Non specific ST changes in V2, V3 Cardiac Echo Impression Echocardiogram Report Interpretation Summary 1) Moderate concentric left ventricular hypertrophy with normal size and mildly reduced systolic function (EF 45-50%). 2) The mid to distal anterior wall and the mid to apical anterolateral wall is hypokinetic. 3) Normal right ventricular size and function. 4) No significant valvular disease. 5) No prior Echo available for comparison. Findings consistent with ischemic cardiomyopathy. Reading Physician:11: 35 AM Invasive Procedures Coronary angiography with left heart catheterization Brief History From the history and physical performed by Dr. Martha Dobbs on 10/06/2016: Mr. Dejon Osborn is a 76 year old man with history of hypertension and is a former smoker who presented to the hospital as a transfer from [facility] for chest pain that started Tuesday. He and his are moving so he has been doing a lot of work around the house including yard work on Tuesday. He states that Tuesday morning he started to have a headache at the top of his head and an earache. Tuesday afternoon, he was sitting at the [facility] 's office when he noticed that he had a sore throat. He then started having a dull chest pressure at his left pectoralis area radiating into his left neck and left shoulder. He states that it was a 3/10 and constant. It gets worse with movement and doing things. He went home from the [facility]'s office and ate pizza for dinner. After eating dinner, he was nauseous and felt like the pizza was stuck in his esophagus so he vomited once. It was non-bloody vomit. He also had 4 loose bowel movements yesterday, which is abnormal for him. The chest pressure continued and he was not able to sleep secondary to pain. He tried taking Aleve twice without relief of his pain. When the pain continued this morning, he decided to seek medical attention at the hospital. He thought he was just having heartburn. He had associated dyspnea. He continues to have chest pain now. It fluctuates from a 3/10 up to a 5/10. He continues to have nausea, a sore throat, and mild cough. He does not have fever, chills, rash, changes in visions, nasal congestion, trouble talking or swallowing, abdominal pain, dysuria, leg edema, hematemesis, hematochezia, melena, or focal weakness. At [facility], patient was started on a heparin drip he was given aspirin 324 mg once, atorvastatin 40 mg once, clopidogrel 300 mg once, and metoprolol tartrate 5 mg once. EKG did not show concerning ST segment changes Hospital Course Mr. Dejon Osborn is a 76 year old man with history of hypertension and former smoker who presented to the hospital as a transfer from [facility] for chest pain. Non-ST elevation myocardial infarction, acute, present on admission. Resolved. - EKGs did not show significant ST elevation, troponin elevated at [facility] and here - CK-MB was also elevated - Echocardiogram showed EF 45-50% and mid to distal anterior wall and the mid to apical anterolateral wall was hypokinetic. - Left heart catheterization with coronary angiogram showed residual intermediate LAD lesion and intermediate mid right coronary artery lesion, but he did not undergo percutaneous intervention. - Patient was already given a loading dose of aspirin, Plavix and atorvastatin at [facility] - He was also given 1 dose of 5 mg metoprolol and started on a heparin drip - Nitroglycerin and morphine was given as needed for chest pain - Continued aspirin 81 mg and started clopidogrel 75 mg daily - Lisinopril increased to 40 mg once daily - Started atorvastatin 40 mg once daily - Started carvedilol 12.5 mg twice per day - Cardiology consulted and followed. Their recommendations were appreciated. Essential hypertension, chronic. - Echocardiogram showed moderate left ventricular hypertrophy - Increased lisinopril to 40 mg once daily - Carvedilol 12.5 mg twice a day as above Abnormal liver function tests, acute, present on admission. Improved. - Elevated total bilirubin and AST initially. On day of discharged total bilirubin decreased to 1.3, AST was within normal limits - Most likely secondary to chronic cholelithiasis. Pt was afebrile and did not have abdominal pain or tenderness on exam. He was not jaundice. He did not appear to have an active cholecystitis or cholangitis. - Patient reported history of gallstones and reported only drinking 1 martini every other week and occasionally 1 additional beer. - No evidence of acute heart failure on exam - Consider further work-up as an outpatient Obstructive sleep apnea, chronic. - Continued CPAP Gastroesophageal reflux disease, chronic. - Pepcid twice a day was given while in the hospital In summary, Mr. Dejon Osborn is a 76 year old man with history of hypertension and former smoker who presented to the hospital as a transfer from [facility] for chest pain and was admitted for a NSTEMI. He underwent a left heart catheterization with coronary angiogram which showed a residual intermediate LAD lesion and an intermediate mid right coronary artery lesion. After his blood pressure was well-controlled, he was stable on medical therapy, and had no signs of acute heart failure on exam, he was discharged to home with a follow up appointment scheduled with cardiology. Exam Vital Signs (Last) Date Time Temp Pulse Resp B/P Pulse Ox O2 Delivery O2 Flow Rate FiO2 10/09/16 10:19 90 10/09/16 09:07 36.6 20 126/73 99 Room Air Exam General: No acute distress, well-developed, well-nourished, appropriately interactive HEENT: Normocephalic, atraumatic. External ears without defect. Anicteric sclerae, moist conjunctivae, and no lid lag. Oropharynx free of erythema and cobble stoning with moist mucosa. Neck: Supple with full range of motion. No jugular venous distension. Cardiovascular: Regular rate and rhythm with no murmurs, rubs, or gallops appreciated Pulmonary: Clear to auscultation bilaterally with no crackles, wheezes, or rhonchi. Normal respiratory effort with no use of accessory muscles. Abdomen: Bowel tones present. Soft, nontender, nondistended. No hepatosplenomegaly or masses appreciated. Extremities: Right radial access site without a palpable hematoma. Radial pulse intact and capillary refill intact. No clubbing, cyanosis, or edema appreciated. Skin: Diffuse actinic keratoses. Lipomas underneath right arm along the triceps and on left upper quadrant of abdomen. Neurological: Cranial nerves grossly intact. Normal muscle strength grossly intact. Psychiatric: Normal mood and affect. Alert and oriented to person, place, and time. Test 10/06/16 15:30 10/06/16 15:55 10/07/16 03:10 10/07/16 08:25 Urine Color Yellow (YELLOW) Urine Appearance Clear (CLEAR,HAZY) Urine pH 6.5 (5.0-8.0) Urine Specific [place] 1.010 (1.003-1.035) Urine Protein Negativemg/dL (NEG,TRACE) Urine Glucose (UA) Negativemg/dL (NEGATIVE) Urine Ketones Negativemg/dL (NEGATIVE) Urine Occult Blood Trace (NEGATIVE) Urine Nitrite Negative (NEGATIVE) Urine Bilirubin Negative (NEGATIVE) Urine Urobilinogen Normalmg/dL (NORMAL) Urine Leukocyte Esterase Negative (NEGATIVE) Urine RBC 0-2/hpf (0-2) Urine WBC 0-5/hpf (0-5) Urine Epithelial Cells Few/hpf (NONE-MOD) Urine Crystals None seen (NONE SEEN) Urine Bacteria Few/hpf (NONE-FEW) Urine Hyaline Casts None/lpf (NONE) Urine Granular Casts None seen (NONE SEEN) Urine Waxy Casts None seen (NONE SEEN) Urine Red Blood Cell Casts None seen (NONE SEEN) Urine White Blood Cell Casts None seen (NONE SEEN) Urine Mucus None seen (None Seen) Urine Trichomonas None seen (NONE SEEN) Urine Yeast None (NONE SEEN) Urinalysis Comment None Urine Culture Reflexed Not indicated Hemoglobin A1c 5.4% (4.8-5.6) Magnesium Level 2.3mg/dL (1.6-2.6) Total Creatine Kinase 1001U/L (21-232) Creatine Kinase MB 127.5ng/mL (0.0-10.4) Creatine Kinase MB % 12.7% (0.0-5.0) Thyroid Stimulating Hormone (TSH) 1.230uIU/mL (0.450-4.500) Triglycerides Level 115mg/dL (0-149) Cholesterol Level 127mg/dL (100-199) LDL Cholesterol, Calculated 70.000mg/dL (0-99) VLDL Cholesterol 23.000mg/dL HDL Cholesterol 34mg/dL (>39) Cholesterol/HDL Ratio 3.74 (0.0-4.4) Troponin T 2.02ug/L (0.0-0.011) Test 10/07/16 09:30 10/09/16 02:25 Activated Partial Thromboplast Time 40.4sec (22.8-33.0) White Blood Count 11.3th/mm3 (3.8-10.1) Red Blood Count 4.78mil/mm3 (4.40-5.80) Hemoglobin 14.5g/dL (13.8-17.2) Hematocrit 42.5% (41.0-50.0) Mean Corpuscular Volume 88.9fL (81-100) Mean Corpuscular Hemoglobin 30.3pg (27.0-35.0) Mean Corpuscular Hemoglobin Concent 34.1% (32.0-37.0) Red Cell Distribution Width 14.0% (12.3-15.4) Platelet Count 210bil/L (150-400) Neutrophils (%) (Auto) 66.7% (40-74) Lymphocytes (%) (Auto) 19.2% (14-46) Monocytes (%) (Auto) 12.2% (4-12) Eosinophils (%) (Auto) 1.1% (0-5) Basophils (%) (Auto) 0.3% (0-3) Sodium Level 138mEq/L (134-144) Potassium Level 4.3mEq/L (3.5-5.2) Chloride Level 99mEq/L (97-108) Carbon Dioxide Level 24mmol/L (18-29) Blood Urea Nitrogen 20mg/dL (8-27) Creatinine 0.99mg/dL (0.76-1.27) Estimat Glomerular Filtration Rate 78mL/min (>59) Glucose Level 116mg/dL (60-99) Calcium Level 9.8mg/dL (8.5-10.1) Total Bilirubin 1.3mg/dL (0.0-1.2) Aspartate Amino Transf (AST/SGOT) 49U/L (0-50) Alanine Aminotransferase (ALT/SGPT) 23U/L (0-44) Alkaline Phosphatase 73U/L (25-160) Total Protein 6.8g/dL (6.4-8.4) Albumin 4.0g/dL (3.4-5.0) Discharge Medications Discharge Medications Aspirin Chew (Aspirin Chew) 81 Mg Chew 81 MG PO DAILY Prescribed by: MARTHA DOBBS DO Atorvastatin Calcium (Atorvastatin Calcium) 40 Mg Tablet 40 MG PO DAILY Prescribed by: MARTHA DOBBS DO Carvedilol (Carvedilol) 12.5 Mg Tablet 12.5 MG PO BIDWM Prescribed by: MARTHA ODBBS DO Clopidogrel (Clopidogrel) 75 Mg Tablet 75 MG PO DAILY Prescribed by: MARTHA DOBBS DO Fluticasone Propionate (Fluticasone Propionate Nasal) 16 [address] [place].susp 1 SPRAY NASAL DAILY (Reported) Lisinopril (Lisinopril) 40 Mg Tablet 40 MG PO DAILY Prescribed by: MARTHA DOBBS DO As needed Nitroglycerin SL (Nitrostat) 0.4 Mg Tab.subl 0.4 MG SL Q5MIN PRN PRN For Chest Pain Take 1 tablet every 5 minutes for maximum of 3 tablets in 15 minutes and seek medical attention. Prescribed by: MARTHA DOBBS DO Followup Plan Disposition: Home Discharge Diet: Heart Healthy Discharge Activity: Limited until seen by PCP Patient Instructions Start clopidogrel (Plavix) 75 mg once daily. It is very important to take this medication every day and to not miss doses. Continue clopidogrel for 1 year. Start aspirin 81 mg once daily, carvedilol 12.5 mg twice per day, and atorvastatin 40 mg once daily at night. Increase lisinopril to 40 mg once daily. You are also given a prescription for nitroglycerin tablets. If you have chest pain, dissolve 1 tablet underneath your tongue every 5 minutes for a maximum of 3 tablets and call 911 or go to the nearest hospital. Follow up with your primary care provider in 7-10 days. Follow up with cardiology, Dr. Suarez, on 11/17/16 at 2:30PM in [place]. Please arrive 15 minutes prior to your appointment time. Follow-up Provider: Duran Rosas MD Follow-up with PCP in: 1 week Provider: Sallie Suarez MD Follow-up in: Other (11/17/16) Time spent 45 min Attending Statement Patient seen and examined with house staff. Agree with all attached documentation. Martha Dobbs DO October 09, 2016 11:14 Gilmer Brito MD October 10, 2016 07:46
== END 2016-10-09 12:30 | disposition home or self-care (01) | DRG 282 ==
LOC: PCC 15:24
PROVIDERS: ADMIT Hospitalist; ATTEND Hospitalist
PROC: 4A023N7 Measurement of Cardiac Sampling and Pressure, Left Heart, Percutaneous Approach (ICD-10-PCS; principal; 2016-10-07)
PROC: B2061ZZ Plain Radiography of Right and Left Heart using Low Osmolar Contrast (ICD-10-PCS; 2016-10-07)
PROC: 4A0335C Measurement of Arterial Flow, Coronary, Percutaneous Approach (ICD-10-PCS; 2016-10-07)
DX: I21.4 Non-ST elevation (NSTEMI) myocardial infarction (principal); I25.5 Ischemic cardiomyopathy; Z87.891 Personal history of nicotine dependence; I10 Essential (primary) hypertension; G47.33 Obstructive sleep apnea (adult) (pediatric); K21.9 Gastro-esophageal reflux disease without esophagitis